=== PATIENT | male | born 1940 | race Caucasian/White ===

== ENCOUNTER 2023-07-15 11:01 | Emergency (ER) | payer MEDICARE, SELFPAY ==
[2023-07-15 11:24] VITALS: BP 149/69; PULSE 64; RESP 17; TEMP 36.6; O2SAT 95; BMI 24.4
--- NOTE | 2023-07-15 12:06 | DI.CT.S_ITS ---
PROCEDURE: CT HEAD/BRAIN WO CON INDICATIONS: Probable TIA TECHNIQUE: Noncontrast 4.5 mm thick angled axial sections acquired from the foramen magnum to the vertex, with coronal and sagittal reformats. For radiation dose reduction, the following was used: automated exposure control, adjustment of mA and/or kV according to patient size. COMPARISON: None. FINDINGS: Image quality: Excellent. CSF spaces: Basal cisterns are patent. No extra-axial fluid collections. Ventricles are normal in size and shape. Brain: No midline shift. No intracranial masses or hemorrhage. Olivares-white matter interface is normal. Incidental enlarged perivascular space noted in the right subinsular white matter. Mild atrophy and white matter chronic ischemic change Skull and face: Calvarium and visualized facial bones are intact, without suspicious lesions. Sinuses: Visualized sinuses and mastoids are clear. IMPRESSION: Atrophy and chronic ischemic change without intracranial hemorrhage or mass effect. Approved by: Heath Hernandez M.D. on 07/15/2023 at 11:36
[2023-07-15 12:11] VITALS: PULSE 70; O2SAT 97
[2023-07-15 12:17] VITALS: BP 150/70; PULSE 66; O2SAT 97
[2023-07-15 12:30] VITALS: BP 137/65; PULSE 66; O2SAT 96
[2023-07-15 12:39] LABS: Add Manual Diff / Slide Review NO; Basophils Absolute Auto 0 /uL (0-100); Eosinophils Absolute Auto 100 /uL (0-450); Eosinophils Percent Auto 1.9 % (2-4); Hematocrit 38.2 % (41-53); Hemoglobin 13.5 g/dL (13.5-17.5); Lymphocytes Absolute Auto 600 /uL (1100-4500); Lymphocytes Percent Auto 17.3 % (25-40); Mean Corpuscular HGB Conc 35.4 % (30-36); Mean Corpuscular Volume 93.2 fL (80-100); Monocytes Absolute Auto 400 /uL (0-900); Monocytes Percent Auto 12.8 % (3-14); Neutrophils Absolute Auto 2300 /uL (1500-7000); Platelet Count 110 X10^3/uL (150-400); Red Blood Cell Count 4.09 X10^6/uL (4.5-5.9); Red Cell Distribution Width 13.9 % (11.6-14.8); White Blood Cell Count 3.4 X10^3/uL (4.5-11.0)
--- NOTE | 2023-07-15 12:54 | ED.NEUROSD ---
HPI - Neuro Symptoms/Deficit General Chief Complaint: Neuro Symptoms/Deficit Stated Complaint: reffered pt having black outs Time Seen by Provider: 07/15/23 11:54 Source: patient Mode of arrival: Ambulatory History of Present Illness HPI Narrative: Patient is an 83-year-old male. Has a history of prostate cancer for which he is completed treatment had history of high blood pressure. Over the past year and specifically a couple times over the past several weeks he is had episodes that his describes as him going into a ?fugue state. She states that he speaks? incomprehensibly ?. She states that for a period of minutes afterwards he is very confused. He does not remember these events. The 1st time happened a little over a year ago but now they have started to happen more frequently. He has a appointment with his primary doctor next month. No prior history of stroke, TIA, atrial fibrillation. On Anticoagulants: No Related Data Home Medications Medication Instructions Recorded Confirmed losartan 25 mg tablet 25 mg PO DAILY 07/15/23 07/15/23 Allergies Allergy/AdvReac Type Severity Reaction Status Date / Time Sulfa (Sulfonamide Allergy Hives Verified 07/15/23 11:28 Antibiotics) Review of Systems Constitutional Constitutional: Reports system reviewed and no additional complaints, except as documented ENT Ears, Nose, Mouth, and Throat: Reports system reviewed and no additional complaints, except as documented Cardiovascular Cardiovascular: Reports system reviewed and no additional complaints, except as documented Respiratory Respiratory: Reports system reviewed and no additional complaints, except as documented Gastrointestinal Gastrointestinal: Reports system reviewed and no additional complaints, except as documented Genitourinary Genitourinary: Reports system reviewed and no additional complaints, except as documented Integumentary/Breasts Skin/Breast: Reports system reviewed and no additional complaints, except as documented Neurologic Neurologic: Reports system reviewed and no additional complaints, except as documented Hematologic/Lymphatic On Anticoagulants: No Patient History Social History Smoking Status: Never smoker Smoking Status: Never smoker alcohol intake frequency: a few times a week Alcohol type: wine Substance Use Type: does not use Exam Initial Vital Signs Initial Vital Signs: Vital Signs Temperature 98 F 07/15/23 11:24 Pulse Rate 64 07/15/23 11:24 Respiratory Rate 17 07/15/23 11:24 Blood Pressure 149/69 H 07/15/23 11:24 Pulse Oximetry 95 07/15/23 11:24 Oxygen Delivery Method Room Air 07/15/23 11:24 HENMT Head: normal to inspection and normocephalic Resp Effort & Inspection: normal respiratory effort Auscultation: clear to auscultation bilaterally Cardio Rate: regular rate Rhythm: regular rhythm GI Inspection: normal to inspection and non-distended Palpation: soft Skin General: no rashes or lesions noted Neuro General: patient alert, patient awake and moves all extremities Cognition: normal cognition Speech: speech normal Gait: normal gait Extrem General: capillary refill normal Course Orders Ordered: ED Orders 07/15/23 11:55 EKG-12 Lead Stat 07/15/23 12:06 CT head/brain wo con Stat 07/15/23 12:19 Basic Metabolic Panel Stat Complete Blood Count AUTO DIFF Stat PTT Partial Thromboplastin Gonzalo Stat Prothrombin Time INR Stat Vital Signs Vital signs: Vital Signs - 8 hr 07/15/23 11:24 07/15/23 12:11 07/15/23 12:17 Temperature 98 F Pulse Rate 64 70 66 Respiratory Rate 17 Blood Pressure 149/69 H Pulse Oximetry 95 97 97 Oxygen Delivery Method Room Air 07/15/23 12:17 07/15/23 12:30 07/15/23 12:30 Temperature Pulse Rate 66 Respiratory Rate Blood Pressure 150/70 H 137/65 Pulse Oximetry 96 Oxygen Delivery Method 07/15/23 13:00 07/15/23 13:00 Temperature Pulse Rate 63 Respiratory Rate Blood Pressure 151/71 H Pulse Oximetry 96 Oxygen Delivery Method Room Air MDM - Neuro Symptoms/Deficit Lab Data Attestation: I reviewed the patient's lab results. 07/15/23 12:19 07/15/23 12:19 Labs: Lab Results 07/15/23 07/15/23 07/15/23 Range/Units 12:19 12:19 12:19 WBC 3.4 L (4.5-11.0) X10^3/uL RBC 4.09 L (4.5-5.9) X10^6/uL Hgb 13.5 (13.5-17.5) g/dL Hct 38.2 L (41-53) % MCV 93.2 (80-100) fL MCH 33.0 (26-34) PG MCHC 35.4 (30-36) % RDW 13.9 (11.6-14.8) % Plt Count 110 L (150-400) X10^3/uL Neut % (Auto) 67.0 (50-75) % Lymph % (Auto) 17.3 L (25-40) % Chilton % (Auto) 12.8 (3-14) % Eos % (Auto) 1.9 L (2-4) % Baso % (Auto) 1.0 (0-2) % Neut # (Auto) 2300 (3865-0147) /uL Lymph # (Auto) 600 L (2135-1690) /uL [place]ilton # (Auto) 400 (0-900) /uL Eos # (Auto) 100 (0-450) /uL Baso # (Auto) 0 (0-100) /uL PT 11.2 (10.1-12.7) SECONDS INR 1.0 (0.9-1.3) APTT 31 (26-36) SECONDS Sodium 139 (137-145) mmol/L Potassium 4.2 (3.4-5.1) mmol/L Chloride 107 (98-107) mmol/L Carbon Dioxide 27 (22-32) mmol/L BUN 17 (9-20) mg/dL Creatinine 0.91 (0.66-1.25) mg/dL Estimated GFR > 60 (>60) mL/min BUN/Creatinine Ratio 18.7 (6-22) Glucose 87 (80-110) mg/dL Calcium 9.7 (8.4-10.2) mg/dL Imaging Data CT scan - head: Radiologist's Impression: PROCEDURE:? CT HEAD/BRAIN WO CON ? INDICATIONS:? Probable TIA ? TECHNIQUE:? Noncontrast 4.5 mm thick angled axial sections acquired from the foramen magnum to the vertex, with coronal and sagittal reformats.? For radiation dose reduction, the following was used:? automated exposure control, adjustment of mA and/or kV according to patient size.? ? COMPARISON:? None. ? FINDINGS:? Image quality:? Excellent.? ? CSF spaces:? Basal cisterns are patent.? No extra-axial fluid collections.? Ventricles are normal in size and shape.? ? Brain:? No midline shift.? No intracranial masses or hemorrhage.? Olivares-white matter interface is normal.? Incidental enlarged perivascular space noted in the right subinsular white matter.? Mild atrophy and white matter chronic ischemic change ? Skull and face:? Calvarium and visualized facial bones are intact, without suspicious lesions.? ? Sinuses:? Visualized sinuses and mastoids are clear.? ? IMPRESSION:? ? Atrophy and chronic ischemic change without intracranial hemorrhage or mass effect ECG Data Attestation: I personally reviewed and interpreted this ECG as follows: Interpretation: Sinus rhythm Ventricular rate is 66 Left axis deviation Normal QRS Normal QTC No ST T wave changes MDM Narrative Medical decision making narrative: Workup here in the emergency department is unremarkable. He has a normal exam here in the ER. Based on his presentation today I would have some suspicion that he is having seizure-like activity as he does not remember any of the symptoms and does seem to be confused afterwards. This is from his who is at bedside. The other consideration would be a TIA although I feel this is less likely based on what his describes as going on. I do think that he would benefit from a referral to see Neurology. He does need to contact his primary doctor for this. I had a discussion with both him and his regarding return precautions. He expressed understanding and agreement. Discharge Plan Departure Patient Disposition: Home Clinical Impression: Seizure-like activity Activity Restrictions/Additional Instructions: I do recommend that you contact your primary doctor for follow-up as I do feel that you would benefit from a referral to see Neurology. Continue to take all of your medications as directed. Return to the emergency department for new or worsening symptoms like we discussed. Prescriptions: No Action losartan 25 mg tablet 25 mg PO DAILY Stand Alone Forms: Patient Portal/API
[2023-07-15 13:00] VITALS: BP 151/71; PULSE 63; O2SAT 96
[2023-07-15 13:03] LABS: Prothrombin Time 11.2 SECONDS (10.1-12.7)
[2023-07-15 13:05] LABS: PTT Partial Thromboplastin Tim 31 SECONDS (26-36)
[2023-07-15 13:09] LABS: BUN Creatinine Ratio 18.7 (6-22); Blood Urea Nitrogen 17 mg/dL (9-20); Calcium 9.7 mg/dL (8.4-10.2); Carbon Dioxide 27 mmol/L (22-32); Chloride 107 mmol/L (98-107); Estimated Glomerular Filt Rate > 60 mL/min (>60); Glucose 87 mg/dL (80-110); HEMOLYSIS < 15 (0-50); Potassium 4.2 mmol/L (3.4-5.1); Sodium 139 mmol/L (137-145)
[2023-07-15 13:30] VITALS: BP 144/69; PULSE 64; O2SAT 95
== END 2023-07-15 14:01 | disposition home or self-care (01) ==
PROVIDERS: Emergency Provider Emergency Medicine
DX: R56.9 Unspecified convulsions (principal)
CPT/HCPCS: 36415; 70450; 80048; 85025; 85610; 85730; 93005; 99284

== ENCOUNTER → 2024-01-15 13:45 | Outpatient (CLI) | payer MEDICARE, SELFPAY ==
--- NOTE | 2024-01-15 13:46 | DI.ECHO.S_ITS ---
[facility]---------+ [facility] +---------+ : : [address] [address] : : : : [id number] : : : : Phone: [phone] Echocardiogram Report + + :Name: CEASAR GAITCA Study Date: 01/15/2024 Height: 71 in : :[facility] ReadingLocation: Weight: 173 lb : : Gender: Male BSA: 2.0 m2 : :: 1940 Age: 83 yrs BP: 154/78 mmHg: :Reason For Study: MURMUR : :Ordering Physician: SULEIMAN, : :ANA LAURA Franco Performed By: Silva Pierre : :Referring: ANA LAURA BEARDEN : + + Interpretation Summary 1) Normal left ventricular thickness, size, wall motion, and systolic function (EF 55-60%). 2) Normal right ventricular size and function. 3) The left atrium is severely dilated. 4) There is severe prolapse of the posterior mitral valve leaflet(s). 5) There is severe mitral regurgitation that is directed anteriorly. 6) The right ventricular systolic pressure is estimated to be at least 28 mmHg based on an estimated right atrial pressure of 3 mm Hg. 7) No prior Echo available for comparison. Recommend cardiology consultation. Procedure: A two-dimensional transthoracic echocardiogram with color flow and Doppler was performed. The study quality was technically adequate. There is no prior echocardiogram noted for this patient. Patient has pectus excavatum. The patient was in sinus rhythm with heart rates between 68-81 bpm during the exam. Left Ventricle: The left ventricle is normal in size. There is mild concentric left ventricular hypertrophy. The ejection fraction is estimated to be 55-60%. Left ventricular systolic function appears normal without focal wall motion abnormalities. Diastolic parameters suggest a pseudonormalization pattern, consistent with probable elevated filling pressures. Right Ventricle: The right ventricle is normal in size, thickness and function. Right ventricular systolic function is mildly reduced. Atria: The left atrium is severely dilated. The right atrium is mildly dilated. There is no Doppler evidence for an interatrial shunt. Mitral Valve: The mitral valve leaflets appear mildly thickened, but open well. There is prolapse of the posterior mitral valve leaflet(s). There is severe mitral valve prolapse. There is severe mitral regurgitation. There is an eccentric jet of mitral regurgitation that is directed anteriorly. Aortic Valve: The aortic valve is trileaflet. The aortic valve is slightly calcified. The aortic valve opens well. There is no aortic valve stenosis. There is mild aortic regurgitation. Tricuspid Valve: The tricuspid valve is normal in structure and function. There is mild tricuspid regurgitation. The right ventricular systolic pressure is estimated to be at least 28 mmHg based on an estimated right atrial pressure of 3 mm Hg. Pulmonic Valve: The pulmonic valve is not well visualized. There is mild pulmonic regurgitation. Great Vessels: The aortic root is normal size. The ascending aorta is at the upper limits of normal in size. The IVC is of normal diameter and collapses greater than 50% with a sniff. This suggests a low right atrial pressure of 3 mm Hg. Pericardium/ Pleura There is no pericardial effusion. There is no pleural effusion. MMode/2D Measurements & Calculations LVIDd: 5.1 cm LVOT diam: 2.3 cm LVIDs: 3.6 cm Ao root diam: 3.3 cm FS: 30.0 % asc Aorta Diam: 3.8 cm IVSd: 1.1 cm Ao Arch Diam (Prox Trans): 2.6 cm LVPWd: 1.2 cm LV acosta. diameter/BSA (cm/m^2): 2.6 LV sys. diameter/BSA (cm/m^2): 1.8 LA A2 area: 26.0 cm2 RA long axis: 5.9 cm LA A4 area: 29.1 cm2 RA area: 21.8 cm2 LA length (vol): 6.1 cm RA vol: 68.5 ml LA vol: 105.3 ml RA : 34.6 ml/m2 LA vol index: 53.1 ml/m2 IVC diam: 1.6 cm RVD1 (basal): 3.6 cm RVD2 (mid): 2.9 cm TAPSE: 1.4 cm Doppler Measurements & Calculations Ao V2 max: 145.6 cm/sec LVOT Max Juan J: 87.4 cm/sec Ao V2 mean: 102.1 cm/sec LV V1 max P.1 mmHg Ao max P.5 mmHg LV V1 VTI: 17.8 cm Ao mean P.6 mmHg LILIBETH(I,D): 2.5 cm2 Ao V2 VTI: 28.8 cm LILIBETH(V,D): 2.4 cm2 sev ratio: 0.62 LILIBETH indexed to BSA (cm^2/m^2): 1.3 MV E max juan j: 140.1 cm/sec TR max juan j: 248.4 cm/sec MV A max juan j: 81.0 cm/sec TR max P.7 mmHg MV E/A: 1.7 Med Peak E' Juan J: 4.9 cm/sec E/E' med: 28.7 Lat Peak E' Juan J: 13.1 cm/sec E/E' lat: 10.7 E/e' average: 19.7 MV dec time: 0.26 sec MVA(VTI): 1.8 cm2 MV V2 mean: 85.2 cm/sec SV(LVOT): 72.4 ml MV mean P.2 mmHg MV V2 VTI: 40.6 cm Reading Physician:03:23 PM
== END ==
PROVIDERS: PCP Family Medicine; Referring Provider Family Medicine; Visit Provider Family Medicine
DX: R01.1 Cardiac murmur, unspecified (principal); I08.3 Combined rheumatic disorders of mitral, aortic and tricuspid valves
CPT/HCPCS: 93306

== ENCOUNTER → 2024-03-16 13:55 | Outpatient (CLI) | payer MEDICARE, SELFPAY ==
[2024-03-16 15:24] LABS: Add Manual Diff / Slide Review NO; Basophils Absolute Auto 0 /uL (0-100); Basophils Percent Auto 0.6 % (0-2); Eosinophils Absolute Auto 200 /uL (0-450); Eosinophils Percent Auto 5.3 % (2-4); Hematocrit 38.6 % (41-53); Hemoglobin 13.4 g/dL (13.5-17.5); Lymphocytes Absolute Auto 800 /uL (1100-4500); Lymphocytes Percent Auto 16.5 % (25-40); Mean Corpuscular HGB Conc 34.7 % (30-36); Mean Corpuscular Hemoglobin 32.5 PG (26-34); Mean Corpuscular Volume 93.5 fL (80-100); Monocytes Absolute Auto 600 /uL (0-900); Monocytes Percent Auto 12.5 % (3-14); Neutrophils Absolute Auto 3000 /uL (1500-7000); Neutrophils Percent Auto 65.1 % (50-75); Platelet Count 130 X10^3/uL (150-400); Red Blood Cell Count 4.13 X10^6/uL (4.5-5.9); Red Cell Distribution Width 14.2 % (11.6-14.8); White Blood Cell Count 4.7 X10^3/uL (4.5-11.0)
[2024-03-16 15:53] LABS: BUN Creatinine Ratio 14.8 (6-22); Blood Urea Nitrogen 16 mg/dL (9-20); Calcium 9.1 mg/dL (8.4-10.2); Carbon Dioxide 29 mmol/L (22-32); Chloride 106 mmol/L (98-107); Estimated Glomerular Filt Rate > 60 mL/min (>60); Glucose 97 mg/dL (80-110); HEMOLYSIS < 15 (0-50); Potassium 4.2 mmol/L (3.4-5.1); Sodium 139 mmol/L (137-145)
== END ==
PROVIDERS: PCP Family Medicine; Referring Provider Internal Medicine; Visit Provider Internal Medicine
DX: I34.0 Nonrheumatic mitral (valve) insufficiency (principal); I34.1 Nonrheumatic mitral (valve) prolapse
CPT/HCPCS: 36415; 80048; 85025